=== PATIENT | female | born 2000 | race Caucasian/White ===

== ENCOUNTER 2020-04-03 01:41 | Emergency (ER) | payer OTHER ==
[~2020-04-03] VITALS: Ht 167.6 cm; Wt 68.0 kg
[~2020-04-03 01:41] MED LIST: FLOMAX0.4 MG PO; LEXAPRO 10 MG T10 M1; NORCO 5-325 TA1 EACH PO
[2020-04-03] MEDS ORDERED: TYLENOL325 M1 PO (03:10)
[2020-04-03] MEDS ORDERED: FLEXERIL PO (03:10)
[2020-04-03] MEDS ORDERED: NAPROSYN500 MG PO (03:10)
[2020-04-03 03:20] VITALS: BP 111/75
== END 2020-04-03 03:32 | disposition left against medical advice (07) ==
LOC: ER 01:41
DX: S13.8XXA Sprain of joints and ligaments of other parts of neck, initial encounter (principal); S80.12XA Contusion of left lower leg, initial encounter; R51.9 Headache, unspecified; F17.210 Nicotine dependence, cigarettes, uncomplicated; F12.90 Cannabis use, unspecified, uncomplicated; Z79.899 Other long term (current) drug therapy; Z87.442 Personal history of urinary calculi; V49.88XA Car occupant (driver) (passenger) injured in other specified transport accidents, initial encounter; Y93.89 Activity, other specified; Y92.413 State road as the place of occurrence of the external cause; Y99.9 Unspecified external cause status

== ENCOUNTER 2021-04-19 23:07 | Emergency (ER) | payer OTHER ==
[~2021-04-19] VITALS: Ht 167.6 cm; Wt 65.8 kg
[~2021-04-19 23:07] MED LIST changes: +FLEXERIL PO; +NAPROSYN500 MG PO; +TYLENOL325 M1 PO
[2021-04-20 00:20] LABS: URINE BILIRUBIN NEGATIVE (Negative); URINE BLOOD 3+ (Negative); URINE CLARITY SL CLOUDY; URINE COLOR RED; URINE GLUCOSE-RANDOM* NEGATIVE (Negative); URINE KETONES NEGATIVE (Negative); URINE LEUKOCYTES-REFLEX TRACE (Negative); URINE NITRITE-REFLEX NEGATIVE (Negative); URINE PROTEIN (DIPSTICK) TRACE (Negative); URINE UROBILINOGEN 0.2 E.U./dl (0.2-1.0)
[2021-04-20 00:47] LABS: ABSOLUTE NEUTROPHILS 3.7 thou/uL (1.4-8.2); BASOPHILS 0.7 % (0.0-2.0); EOSINOPHILS 0.5 % (0.0-3.0); HEMATOCRIT 43.5 % (37.0-47.0); HEMOGLOBIN 13.9 gm/dL (12.0-15.0); LYMPHOCYTES 36.6 % (24.0-44.0); MCV 75.2 fL (80.0-100.0); MONOCYTES 9.1 % (1.0-8.0); PLATELET COUNT 397 thou/uL (150-400); POLYS 53.1 % (36.0-66.0); RBC 5.78 mil/uL (4.20-5.00); RDW 13.5 % (10.5-14.5)
[2021-04-20 00:59] LABS: CALCIUM 9.8 mg/dL (8.5-10.1); CREATININE 0.8 mg/dL (0.6-1.0); POTASSIUM 3.9 mmol/L (3.5-5.1)
[2021-04-20 01:03] LABS: CASTS None Seen /LPF (None Seen); CRYSTALS None Seen /LPF (None Seen); MUCUS None Seen strn/LPF (None Seen); SQUAMOUS 0-3 Few /LPF (0-3); URINE RBC >20 Many /HPF (NONE SEEN)
[2021-04-20 01:05] LABS: BACTERIA-REFLEX 1-9 Few /HPF (None Seen); URINE WBC-REFLEX 0-5 Rare /HPF (0-5)
[2021-04-20 01:09] LABS: ALBUMIN 4.8 g/dL (3.4-5.0); TOTAL BILIRUBIN 0.9 mg/dL (0.2-1.0); TOTAL PROTEIN 9.2 g/dL (6.4-8.2)
[2021-04-20 01:11] VITALS: BP 125/88
== END 2021-04-20 01:13 | disposition left against medical advice (07) ==
LOC: ER 23:07
PROVIDERS: Emergency Medicine
DX: R10.13 Epigastric pain (principal); R11.2 Nausea with vomiting, unspecified; F10.10 Alcohol abuse, uncomplicated; Y90.9 Presence of alcohol in blood, level not specified; F17.210 Nicotine dependence, cigarettes, uncomplicated; Z79.899 Other long term (current) drug therapy